=== PATIENT | female | born 1980 | race Caucasian/White ===

== ENCOUNTER 2017-10-30 20:38 | Emergency (ER) | payer OTHER ==
[~2017-10-30] VITALS: Ht 177.8 cm; Wt 120.0 kg
[2017-10-30 21:09] LABS: HEMATOCRIT 30.1 % (36.0-46.0); HEMOGLOBIN 9.6 G/DL (11.9-15.5); MCH 23.1 PG (29.0-34.0); MCHC 31.9 G/DL (30.0-36.0); MCV 72.5 FL (83-99); PLATELET COUNT 362 K/uL (156-360); RED BLOOD COUNT 4.15 M/uL (3.80-5.20); WHITE BLOOD COUNT 8.8 K/uL (4.1-10.2)
[2017-10-30 21:16] LABS: ALBUMIN 3.4 g/dL (3.2-4.8); CHLORIDE 99 mEq/L (99-109); POTASSIUM 3.7 mEq/L (3.7-5.4); SODIUM 134 mEq/L (136-147)
[2017-10-30 21:18] LABS: GLUCOSE 306 mg/dL (70-99); TOTAL PROTEIN 7.3 g/dL (6.4-8.3)
[2017-10-30 21:20] LABS: TOTAL BILIRUBIN 0.6 mg/dL (0.0-1.0)
[2017-10-30 21:22] LABS: ALKALINE PHOSPHATASE 99 IU/L (3-129); CREATININE 0.7 mg/dL (0.6-1.3); GFR ESTIMATE (CALCULATED) > 59 mL/min/
[2017-10-30 21:23] LABS: AST (GOT) 17 IU/L (2-34); UREA NITROGEN (BUN) 4 mg/dL (9-23)
[2017-10-30 21:25] LABS: ALT (GPT) 50 IU/L (3-49)
[2017-10-30 21:33] LABS: QUANTITATIVE HCG < 4.0 MIU/ML
[2017-10-31 03:27] VITALS: BP 148/62
== END 2017-10-31 03:27 | disposition short-term general hospital (02) ==
LOC: EME 20:38
DX: M72.6 Necrotizing fasciitis (principal); E11.9 Type 2 diabetes mellitus without complications; R16.1 Splenomegaly, not elsewhere classified; Z88.0 Allergy status to penicillin
CPT/HCPCS: 74177; 80053; 83605; 84702; 85027; 87040; 99281; 99285; J0744; J2270; J3370; J7030